=== PATIENT | male | born 2005 | race Caucasian/White ===

== ENCOUNTER 2025-07-10 21:15 | Inpatient (IN) | payer OTHER, BC ==
[~2025-07-10] VITALS: Ht 185.4 cm; Wt 100.0 kg
--- NOTE | 2025-07-10 21:51 | Physician Documentation ---
History of Present Illness Chief Complaint: Abdominal Pain w/vomiting Stated Complaint: ABD PAIN HPI Abdominal pain nausea vomiting x1 day. Patient reports that he has significant right lower quadrant pain 10/10 that has been persistent throughout the day. Patient reports nausea and vomiting. Patient reports normal bowel movements daily patient denies any issues with his urination at this time. Patient denies any other symptoms at this time. Patient denies any other significant past medical history. Medication Reconciliation Allergies: Coded Allergies: bee venom protein (honey bee) (Verified Allergy, Unknown, 07/10/25) Review of Systems ROS As stated above in the HPI, otherwise all systems are reviewed and negative. Physical Exam Vital Signs: Temperature: 97.6, Source: Temporal, Heart Rate: 70, Respiratory Rate: 15, BP: 136/77, Pulse Oximetry: 99, Weight: 100.000 Physical Exam VITALS: Reviewed and as above. GENERAL: Alert, no apparent distress. GI: Soft, please tender with palpation, bowels sounds present, no rebound, guarding and rebound tenderness present during examination. BACK: No CVA tenderness, or swelling MUSCULOSKELETAL No deformities, no edema SKIN: Warm and dry, no rash NEURO: Oriented x4, No motor or sensory deficit PSYCH: Normal mood and affect, no agitation Progress Results/Orders Results/Orders Vital Signs 07/10/25 21:48 Temp 97.6 Pulse 70 Resp 15 B/P (MAP) 136/77 Pulse Ox 99 Medical Decision Making Findings This is a G1-year-old gentleman with RLQ pain, most concerning for appendicitis. Abdominal exam concerning for peritoneal signs acute abdomen at this time. High suspicion for appendicitis. Patient with appendicitis this confirmed on CT scan, the hospitalist was consulted and patient admitted. Given work up, low suspicion for acute hepatobiliary disease (including acute cholecystitis or cholangitis), acute infectious processes (pneumonia, hepatitis, pyelonephritis), vascular catastrophe, bowel obstruction, or viscus perforation. Presentation not consistent with other acute, emergent causes of abdominal pain at this time. IV established fluids started pain management provided Zofran given. Handoff for this patient has been provided to my attending Dr. Jean. Differential Dx:Considerations: Include: AAA, Angina/MD, Aortic dissection, Appendicitis, Bowel obstruction, Cholangitis, Cholelithasis, Constipation, Diverticular disease, Esophageal rupture, Esophagitis, Gastritis/PUD, Gastroenteritis, GI hemorrhage, Hernia, Hepatitis, Inflammatory BD, Ischemic bowel, Pancreatitis, Porphyria, Testicular torsion, Trauma, intraabdominal, Urinary obstruction, Urinary tract infection, Urolithiasis, Other Departure Disposition: 07 LEFT AWOL/ELOPED Impression: Primary Impression: Vomiting Additional Impressions: Abdominal pain Acute appendicitis Discharge Instructions: Appendicitis, Adult, [id number] Additional Instructions: This is a 19-year-old gentleman with RLQ pain, most concerning for appendicitis. Abdominal exam concerning for peritoneal signs acute abdomen at this time. High suspicion for appendicitis. Patient with appendicitis this confirmed on CT scan, the hospitalist was consulted and patient admitted. Given work up, low suspicion for acute hepatobiliary disease (including acute cholecystitis or cholangitis), acute infectious processes (pneumonia, hepatitis, pyelonephritis), vascular catastrophe, bowel obstruction, or viscus perforation. Presentation not consistent with other acute, emergent causes of abdominal pain at this time. IV established fluids started pain management provided Zofran given. Handoff for this patient has been provided to my attending Dr. Jean. Referrals: NO PRIMARY CARE PROVIDER (PCP) Education Educated: Patient Educated regarding: diagnosis, treatment, need for follow up Signature Scribe Signature: A Attestation: Scribed for Jolanta Francis by TIARA Garnica . 07/11/25 01:19 JOLANTA FRANCIS Jul 10, 2025 21:51
[2025-07-10 22:31] LABS: MEAN PLATELET VOLUME 8.1 FL (7.4-10.4); RED CELL DISTRIBUTION WIDTH 13.4 % (11.5-14.5)
[2025-07-10 22:35] LABS: LEUKOCYTE ESTERASE ,URINE NEGATIVE (Neg); NITRITES, URINE NEGATIVE (Neg); OCCULT BLOOD,URINE NEGATIVE (Neg)
[2025-07-10 22:42] LABS: AMORPHOUS PHOSPHATES 4+; SQUAMOUS EPITHELIAL CELL,UR NONE SEEN /LPF (FEW); UA COLLECTION TYPE CLN CATCH MIDSTREAM
[2025-07-10 22:56] LABS: CREATININE 0.88 MG/DL (0.60-1.10); TOTAL CARBON DIOXIDE 33.1 MMOL/L (24-32); eCRCL 137 ML/MIN; eGFR > 90 ML/MIN
[2025-07-11] VITALS (23 sets, daily range): BP systolic 113–144; BP diastolic 55–86; PULSE 60–83; RESP 12–16; TEMP 97.6–98.4; O2SAT 91–99
[2025-07-11] MEDS: ondansetron/PF 4mg/2ml inj IV ONE (00:04)
[2025-07-11] MEDS: morphine 4 MG/ML inj SYRINge IV ONE (00:05)
[2025-07-11] MEDS: normal saline 1000ml 1,000 ML IV ONE (00:05)
[2025-07-11] MEDS ORDERED: iohexol 300mg/ml 100ml inj. ONE (00:15)
--- NOTE | 2025-07-11 00:43 | RADIOLOGY REPORT ---
Exam: CT CT ABDOMEN PELVIS W/ IV CONTRAST History: LRQ pain, nausea and vomiting COMPARISON: None Technique: Multidetector spiral CT of the abdomen and pelvis was performed from lung bases to pubic symphysis. Intravenous contrast was administered during this examination. Portal venous imaging was obtained. Axial, coronal and sagittal multiplanar reformats were performed by the technologist on a separate workstation. Radiation Dose : 1. Abdomen/Pelvis: CTDIvol 23.59 mGy, DLP 1179.09 mGy*cm. CONTRAST: Type of contrast: Omnipaque 100 Contrast injected: 100 ml Findings: Lung Bases: No acute or significant lung base finding. Normal heart size. No pleural or pericardial effusion. Liver: The liver is normal in size. No focal lesions. Normal hepatic vascular enhancement. Gallbladder and biliary Tree: Unremarkable Spleen: Unremarkable Pancreas: The pancreas is normal in appearance without focal lesions or abnormal enhancement. Adrenal Glands: Unremarkable Kidneys: No hydronephrosis. Bladder: Unremarkable Bowel: Appendix is mildly dilated measuring 0.8 cm with mild surrounding edema. Mucosa is hyperenhancing Ascites: Absent Lymphadenopathy: No mesenteric, retroperitoneal or periportal lymphadenopathy. Abdominal wall and Mesentery: Unremarkable. Vasculature: The visualized abdominal aorta is normal in size and caliber. Abdominal and pelvic vessels demonstrate normal enhancement. Pelvic Organs: Unremarkable Musculoskeletal: No aggressive focal bony lesions, acute fractures or dislocation. IMPRESSION: Suspected early acute appendicitis. Radiation optimization: All CT scans at this facility use at least one of these dose optimization techniques: automated exposure control mA and/or kV adjustment per patient size (includes targeted exams where dose is matched to clinical indication) or iterative reconstruction.
[2025-07-11] MEDS ORDERED: magnesium sulf-water 2g/50mL 50 ML IV PRN (01:15)
[2025-07-11] MEDS ORDERED: magnesium sulf-water 4G/100mL 100 ML IV PRN (01:15)
[2025-07-11] MEDS ORDERED: magnesium Cl slow-release 64mg tablet PO PRN (01:15)
[2025-07-11] MEDS ORDERED: ondansetron/PF 4mg/2ml inj IV PRN ×3 (01:15→11:00)
[2025-07-11] MEDS ORDERED: potassium Cl 20 mEq SR tablet PO PRN ×2 (01:15)
[2025-07-11] MEDS ORDERED: magnesium hydroxide 30ml (MOM) UD suspension PO PRN (01:15)
[2025-07-11] MEDS ORDERED: potassium Cl 40MEQ/1/2NS 520ml 520 ML IV PRN (01:15)
[2025-07-11] MEDS ORDERED: mag hydrox/Alum hydrox/simeth 30ml oral suspension PO PRN (01:15)
[2025-07-11] MEDS: CefTRIAXone/D5W-Rocephin 1gm 50 ML IV ONE (01:43)
[2025-07-11] MEDS: normal saline 1000ml 1,000 ML IV SCH (01:44)
[2025-07-11] MEDS ORDERED: NO HOME MEDS (02:09)
[2025-07-11] MEDS: metroNIDAZOLE-Flagyl 500mg/NS 100 ML IV STA (02:17)
[2025-07-11] MEDS: ketorolac trometh 15mg/ml vial 15 MG/ML ML IV STA (02:26)
[2025-07-11 02:39] LABS: APTT 29 SECONDS (22-32); INR 1.0 INR
--- NOTE | 2025-07-11 04:43 | HISTORY AND PHYSICAL-Residence ---
History & Physical Providers to CC Resident Creating Document: NICOLE WELDON RES ~ History of Present Illness Reason for Admit\Complaint: Possible appendicitis History of Present Illness 19-year-old male presented to the ED due to abdominal pain which started in the evening, pain started on right lower quadrant and radiated to the umbilical area and back, severity 7/10 non positional, not related to the foot. Patient also reported associated nausea vomiting 3 times before visited ED. he reported normal bowel movement and no any urinary symptoms, no fever and no chills. Allergies: Coded Allergies: bee venom protein (honey bee) (Verified Allergy, Unknown, 07/10/25) Home Medications Home Medications Active Reported No Home Medications (Home Med List) Each Past Medical History Past Medical History Noncontributory Past Surgical History Surgical History Comment Tonsillectomy Family History Family History: Patient reports no known family medical history. Past Social History Smoking: Non-Smoker Alcohol Use: Rarely Drug Use: None ROS ROS Constitutional: No fever, dizziness, weakness. no change in appetite/weight HEENT: No blurring of the vision, No sore throat, epistaxis, tinnitus Cardiovascular: no chest pain/discomfort, palpitations, no syncope. No pedal edema Respiratory: No sob, cough,, hemoptysis Gastrointestinal as HPI Genitourinary: No frquency, urgency, incontinence, nocturia. No dysuria, hematuria Musculoskeletal: No arthralgia, myalgia Endocrine: No polydipsia, polyuria. No heat or cold intolerance Neurologic: No headache, vertigo. No weakness, no numbness or tingling of extremities Psychiatric: No hallucinations/delusions, no anhedonia, no suicidal ideation\ Hematologic: No bleeding or bruises Exam Vitals: Vital Signs Date Time Temp Pulse Resp B/P (MAP) Pulse Ox O2 Delivery O2 Flow Rate FiO2 07/11/25 02:40 18 07/11/25 02:00 65 100 07/10/25 21:48 97.6 General: General: Awake and Alert, no acute distress. HEENT: Conjunctiva pink, Sclera clear, Mucus Membranes moist. Neck: Supple without masses and tenderness. Resp: Lungs clear to auscultation bilaterally. Heart: Regular Rate and rhythm, normal S1 and S2 without murmur, rub or gallop. Abdomen: Soft, tenderness on right lower quadrant, and umbilical area, no guarding Extremities: No cyanosis,clubbing or edema. Skin: Warm and Dry. Neurological: Speech is clear, alert, and oriented x 4, no gross neurological deficits Diagnostic Data Last Recorded Lab Results: 07/10/25220507/10/252205 Diagnostic Data: Laboratory Tests Test 07/11/25 00:00 Prothrombin Time 10.3 SECONDS (9.0-12.0) INR International Normalized Ratio 1.0 INR Activated Partial Thromboplast Time 29 SECONDS (22-32) Coagulation Comments Advance Care Planning Advanced Care plannin - 30 Minutes Additional Plan 19 years old male presented with acute abdominal pain started this evening Abdominal pain Possible appendicitis Leukocytosis, CT showed: Suspected early acute appendicitis. Dr Pratt was informed. IV fluid, ceftriaxone metronidazole started Pain management and Zofran ordered Code Status: Full DVT prophylaxis: SCD Analgesia/sedation: Morphine, ketorolac Line/tube: Peripheral GI prophylaxis: None Nutrition: NPO Prognosis: Guarded Disposition: Continue monitoring patient in ortho floor Nicole Weldon MD Internal Medicine Resident Date of Service: Jul 11, 2025 Billing Provider: THIEN EPPS MD Addendum agree with the resident acute appendicitis surgical consult ceftriaxone and metronidazole IV NPO IM 3 NICOLE WELDON, RES Jul 11, 2025 04:43 THIEN EPPS MD Jul 11, 2025 15:32
[2025-07-11] MEDS ORDERED: hydrALAZINE 20mg/ml inj. IV PRN (07:55)
[2025-07-11] MEDS ORDERED: fentaNYL/PF 50MCG/1 ML 2ML syringe IV PRN ×2 (07:55)
[2025-07-11] MEDS: ringers solution, lacted 1,000 ML IV SCH (07:55)
[2025-07-11] MEDS ORDERED: labetalol 20mg/4ml (5mg/ml) syringe IV PRN (07:55)
[2025-07-11] MEDS: K and/or MAG REPLACEMENT MC SCH (08:00)
[2025-07-11] MEDS ORDERED: fentaNYL/PF 50MCG/1 ML 2ML syringe ONE (08:48)
[2025-07-11] MEDS ORDERED: BUPIVAcaine/PF 2.5mg/ml (0.25%) 10ml vial ONE (08:48)
[2025-07-11] MEDS ORDERED: midazolam 1 mg/ML 2ml injection ONE (08:48)
[2025-07-11] MEDS ORDERED: propofol inj 20 ML IV ONE (08:49)
[2025-07-11] MEDS ORDERED: rocuronium 10mg/ml inj IV ONE (08:49)
[2025-07-11] MEDS ORDERED: dexamethasone sod phosphate 4mg/ml inj. ONE (08:49)
[2025-07-11] MEDS ORDERED: glycopyrrolate 0.2mg/ml inj ONE (08:49)
[2025-07-11] MEDS ORDERED: ondansetron/PF 4mg/2ml inj ONE (08:49)
[2025-07-11] MEDS ORDERED: LIDOcaine 1%/PF 5ML 10 MG/ML VIAL ONE (08:49)
--- NOTE | 2025-07-11 09:44 | PROGRESS NOTE ---
Progress Note ID Providers to CC ~ Progress Note Progress Note: pt seen and examiined-findings consistent with early appendicitis-pt needs tanviro appbhavna-possible open-discussed procedure including risks/benefits/alernatives DAWIT BOYKIN MD Jul 11, 2025 09:44
[2025-07-11] MEDS ORDERED: acetaminophen 1,000mg/100ml IV 100 ML IV ONE (09:57)
--- NOTE | 2025-07-11 10:55 | OPERATIVE REPORT ---
Operative Report Providers to CC ~ Date of Procedure: Jul 11, 2025 Pre-Operative Diagnosis: APPENDICITIS Post-Operative Diagnosis SAME as PRE-Op Procedure Performed radha do Surgeon: harpal ignacio Anesthesiologist: Catalino Tierney Type of Anesthesia: General Findings: appendicitis/adhesions Estimated Blood Loss: min Specimen Removed: DAWIT Neff MD Jul 11, 2025 10:55
[2025-07-11] MEDS ORDERED: HYDROmorphone inj. 0.5 MG/0.5 ML DISP.SYRIN IV PRN (11:00)
[2025-07-11] MEDS: ketorolac trometh 30MG/ML vial 30 MG/ML VIAL IV PRN (11:22)
[2025-07-11] MEDS: morphine 4 MG/ML inj SYRINge IV PRN (11:27)
[2025-07-11] MEDS: HYDROcodone/acetaminophen 10/325mg tab PO PRN (13:26)
[2025-07-11] MEDS: metroNIDAZOLE-Flagyl 500mg/NS 100 ML IV SCH (13:27)
[2025-07-11] MEDS: docusate sod 100mg capsule PO SCH (13:27)
[2025-07-11] MEDS ORDERED: morphine 4 MG/ML inj SYRINge IV PRN ×2 (19:05→19:06)
--- NOTE | 2025-07-11 19:20 | PROGRESS NOTE- Residence ---
Progress Note - Resident Providers to CC Resident Creating Document: FLORENCIO GUADALUPE RES ~ Antibiotic Timeout Antibiotic Ordered?: Yes Subjective Patient was examined, he is doing well and his vitals are Continue monitoring the patient Objective Vital Signs Date Time Temp Pulse Resp B/P (MAP) Pulse Ox O2 Delivery O2 Flow Rate FiO2 07/11/25 19:06 16 07/11/25 18:00 98.4 75 119/66 (83) 99 Room Air 07/11/25 11:06 6.0 Result Diagram: 07/10/25220507/10/252205 HEENT: Conjunctiva pink, Sclera clear, Mucus Membranes moist. Neck: Supple without masses and tenderness. Resp: Lungs clear to auscultation bilaterally. Heart: Regular Rate and rhythm, normal S1 and S2 without murmur, rub or gallop. Abdomen: Soft, reports 3/10 intensity abdominal pain, , no guarding Extremities: No cyanosis,clubbing or edema. Skin: Warm and Dry. Neurological: Speech is clear, alert, and oriented x 4, no gross neurological deficits Coagulation Studies Laboratory Tests Test 07/11/25 00:00 Prothrombin Time 10.3 SECONDS (9.0-12.0) INR International Normalized Ratio 1.0 INR Activated Partial Thromboplast Time 29 SECONDS (22-32) Coagulation Comments Advance Care Planning Advanced Care plannin - 30 Minutes Assessment Assessment 19 years old male presented with acute abdominal pain started this evening Abdominal pain s/p appendectomy Patient vitals are stable Plan- Continue IV fluid, ceftriaxone metronidazole day 2 Continue Pain management and Zofran Follow-up with CBC/CMP Code Status: Full DVT prophylaxis: SCD Analgesia/sedation: Morphine, ketorolac Line/tube: Peripheral GI prophylaxis: None Prognosis: Guarded Disposition: Continue monitoring patient in ortho floor, Dr. Zaragoza involved in the care florencio guadalupe PGY1 Date of Service: Jul 11, 2025 Billing Provider: IMAN BRITT MD Common Visit Codes: [id number] INP/OBS CARE(MOD) FLORENCIO GUADALUPE RES Jul 11, 2025 19:20 IMAN BRITT MD Jul 12, 2025 16:36
--- NOTE | 2025-07-12 00:50 | OPERATIVE REPORT ---
DATE OF SURGERY: 07/11/2025 DICTATING PHYSICIAN: Adam Pratt MD DATE OF OPERATION: 07/11/2025 PREOPERATIVE DIAGNOSIS: Appendicitis. POSTOPERATIVE DIAGNOSIS: Appendicitis. PROCEDURE PERFORMED: Robotic appendectomy. SURGEON: Adam Pratt MD. ONCOLOGY RESEARCH RN: Harish. ANESTHESIA: General/Dr. Tierney. DRAINS: None. INDICATIONS FOR OPERATION: A 19-year-old male presented with abdominal discomfort and found to have evidence of appendicitis, taken to surgery for robotic appendectomy. INTRAOPERATIVE FINDINGS: Acute appendicitis with adhesions. DESCRIPTION OF PROCEDURE: The patient was placed supine on the operating table. After induction of general anesthesia and placement of endotracheal tube, the abdomen was prepped and draped. A supraumbilical incision was then made and Manuel port placed using an open technique. Pneumoperitoneum was begun by insufflation of CO2. Additional ports were then placed, two in the left lower quadrant and one in the right under laparoscopic vision. Robot was then brought into the field. Camera port docked. Camera placed, camera targeted. Additional ports were then docked and instruments placed. The abdomen was then explored. The patient had extensive adhesions in the right lower quadrant. The appendix was subsequently visualized. Adhesions taken down, the appendiceal-cecal junction identified, isolated, ligated, and divided at the appendiceal mesentery. Once hemostasis was found to be adequate, the robot was undocked and removed from the field. The appendix was placed in an Endobag using a laparoscope. The abdomen was copiously irrigated with large amount of antibiotic-containing solution. Once hemostasis was found to be adequate, the ports were removed under laparoscopic vision without evidence of active bleeding. Final port and camera were withdrawn. Pneumoperitoneum was then evacuated. Wounds were closed in layers. The skin was closed with clips. Dressing was applied, and the patient was transferred to recovery in stable condition after reversing from general anesthesia. Adam Pratt MD TID: [id number] RECEIPT: [id number] /
[2025-07-12] MEDS: CefTRIAXone/D5W-Rocephin 1gm 50 ML IV SCH (01:47)
[2025-07-12 05:05] VITALS: BP 117/67; PULSE 71; RESP 16; TEMP 98.7; O2SAT 98
[2025-07-12 06:41] VITALS: BP 117/67; PULSE 71; RESP 16; TEMP 98.7; O2SAT 98
[2025-07-12 08:00] VITALS: RESP 16; O2SAT 98
--- NOTE | 2025-07-12 09:10 | CONSULTATION ---
DATE OF CONSULTATION: 07/11/2025 DICTATING PHYSICIAN: Adam Pratt MD REASON FOR CONSULTATION: Abdominal pain. HISTORY OF PRESENT ILLNESS: The patient is a 19-year-old male who presents to ER with complaint of abdominal discomfort. CAT scan revealed early appendicitis. On further questioning, the patient has had pain for the past 24 hours in the right lower quadrant and periumbilical region. No fever or chills. No dysuria. PAST MEDICAL HISTORY: Unremarkable. PAST SURGICAL HISTORY: Unremarkable and tonsillectomy. HOME MEDICATIONS: None. ALLERGIES: No medical allergies. SOCIAL HISTORY: Denies tobacco or alcohol use. REVIEW OF SYSTEMS: See H and P. PHYSICAL EXAMINATION: GENERAL: Well-nourished male, in no distress. VITAL SIGNS: Unremarkable. HEART: Regular rate and rhythm. LUNGS: Clear to auscultation. ABDOMEN: Right lower quadrant tenderness. EXTREMITIES: Unremarkable. NEUROLOGIC: Nonfocal. LABORATORY DATA: Included WBC of 19, hematocrit of 45, platelet count is 285. Chemistries include a creatinine of 11.8. IMAGING STUDIES: CAT scan revealed evidence of early appendicitis. IMPRESSION: Early appendicitis. RECOMMENDATIONS: 1. Admit. 2. Hydrate. 3. IV antibiotics. 3. Kurt do, possibly open. Adam Pratt MD TID: [id number] RECEIPT: [id number] KB/RCR
[2025-07-12 09:42] LABS: MEAN PLATELET VOLUME 8.1 FL (7.4-10.4); RED CELL DISTRIBUTION WIDTH 13.0 % (11.5-14.5)
[2025-07-12 09:51] LABS: CREATININE 0.94 MG/DL (0.60-1.10); TOTAL CARBON DIOXIDE 30.4 MMOL/L (24-32); eCRCL 140 ML/MIN; eGFR > 90 ML/MIN
[2025-07-12 10:19] VITALS: BP 111/52; PULSE 69; RESP 18; TEMP 98.1; O2SAT 98
[2025-07-12] MEDS ORDERED: LACT1CAP26 PO (14:45)
[2025-07-12] MEDS ORDERED: CEFD300C3 PO (14:45)
[2025-07-12] MEDS ORDERED: METR-159 PO (14:45)
[2025-07-12] MEDS ORDERED: ACET-1008 PO (14:45)
[2025-07-12 14:54] VITALS: RESP 16
--- NOTE | 2025-07-12 15:05 | PROGRESS NOTE ---
Progress Note ID Providers to CC ~ Progress Note Progress Note: doing well/ok to DAWIT Roque MD Jul 12, 2025 15:05
--- NOTE | 2025-07-12 20:22 | DISCHARGE SUMMARY-Residence ---
Discharge Summary Providers to CC Resident Creating Document: ANDREA GUADALUPE, RES ~ Discharge Summary Admission Diagnosis: APPENDICITIS Hospital Course DATE OF ADMISSION: 07/11/2025 DATE OF DISCHARGE: 07/12/2025 Discharge Diagnosis\Comment: Acute appendicitis Operations\Procedures: Appendectomy Consultants: Dr. Pratt Complications: None Condition on DC: Stable New Medications: Cefdinir* (Cefdinir*) 300 Mg Capsule 1 CAP PO Q12H for 3 Days, #6 CAP Lactobacillus Rhamnosus (Culturelle) 10 Billion Cell Capsule 1 CAP PO BID for 30 Days, #60 CAP 0 Refills Metronidazole* (Flagyl*) 500 Mg Tablet 1 TAB PO Q12H for 3 Days, #6 TAB Continued Medications: Acetaminophen (Tylenol) 325 Mg Tablet 1 TAB PO Q4HPRN PRN for pain or fever for 24 Days, #100 TAB Discharge Summary: History of Present Illness 19-year-old male presented to the ED due to abdominal pain which started in the evening, pain started on right lower quadrant and radiated to the umbilical area and back, severity 7/10 non positional, not related to the foot. Patient also reported associated nausea vomiting 3 times before visited ED. he reported normal bowel movement and no any urinary symptoms, no fever and no chills. Hospital course 19 years old male presented to ED due to abdominal pain which started on right lower quadrant and radiates to the umbilical area and back with 7/10 intensity, initial laboratory shows elevated WBC, normal vital signs, CT scan of the abdomen/pelvis showsSuspected early acute appendicitis. And Dr. Powers was consulted immediately and patient underwent appendectomy on 07/11/2025 and today his white count is trending down and vitals are stable and patient is recovered sooner than expected and cleared for discharge by Dr. powers HEENT: Conjunctiva pink, Sclera clear, Mucus Membranes moist. Neck: Supple without masses and tenderness. Resp: Lungs clear to auscultation bilaterally. Heart: Regular Rate and rhythm, normal S1 and S2 without murmur, rub or gallop. Abdomen: Soft, on palpation patient report mildly tender in the right lower quadrant, no guarding and rigidity, bowel sounds are normal on auscultation Extremities: No cyanosis,clubbing or edema. Skin: Warm and Dry. Neurological: Speech is clear, alert, and oriented x 4, no gross neurological deficits Coagulation Studies Vital Signs Date Time Temp Pulse Resp B/P (MAP) Pulse Ox O2 Delivery O2 Flow Rate FiO2 07/12/25 14:54 16 07/12/25 10:19 98.1 69 111/52 (71) 98 Room Air 07/11/25 11:06 6.0 Laboratory Tests Test 07/10/25 22:06 07/10/25 22:27 07/11/25 00:00 07/11/25 07:47 White Blood Count 19.3 X10'3 Red Blood Count 5.29 X10'6 Hemoglobin 15.5 g/dl Hematocrit 45.4 % Mean Corpuscular Volume 85.8 FL Mean Corpuscular Hemoglobin 29.3 PG Mean Corpuscular Hemoglobin Concent 34.2 g/dL Red Cell Distribution Width 13.4 % Platelet Count 285 X10'3 Mean Platelet Volume 8.1 FL Neutrophils (%) (Auto) 85.2 % Lymphocytes (%) (Auto) 9.0 % Monocytes (%) (Auto) 5.2 % Eosinophils (%) (Auto) 0.2 % Basophils (%) (Auto) 0.4 % Neutrophils # (Auto) 16.4 X10'3 Lymphocytes # (Auto) 1.7 X10'3 Monocytes # (Auto) 1.0 X10'3 Eosinophils # (Auto) 0.0 X10'3 Basophils # (Auto) 0.1 X10'3 CBC Comment Sodium Level 141 MMOL/L Potassium Level 4.1 MMOL/L Chloride Level 102 MMOL/L Carbon Dioxide Level 33.1 MMOL/L Anion Gap 6 Blood Urea Nitrogen 11 MG/DL Creatinine 0.88 MG/DL Estimated GFR/1.73 m2 > 90 ML/MIN BUN/Creatinine Ratio 12.5 Glucose Level 104 MG/DL Calcium Level 9.2 MG/DL Magnesium Level 2.1 MG/DL Total Bilirubin 0.2 MG/DL Aspartate Amino Transf (AST/SGOT) 14 U/L Alanine Aminotransferase (ALT/SGPT) 23 U/L Alkaline Phosphatase 113 IU/L Total Protein 7.5 G/DL Albumin 4.1 G/DL Globulin 3.4 G/DL Albumin/Globulin Ratio 1.2 Lipase 32 U/L Chemistry Comments Urine Specimen Description Cln catch midstream Urine Color Yellow Urine Clarity Cloudy Urine pH 8.5 Urine Specific [place] 1.020 Urine Protein Negative mg/dl Urine Glucose (UA) Negative mg/dl Urine Ketones Negative mg/dl Urine Occult Blood Negative Urine Nitrite Negative Urine Bilirubin Negative Urine Urobilinogen 0.2 E.U/dL Urine Leukocyte Esterase Negative Urine RBC None seen /HPF Urine WBC None seen /HPF Urine Squamous Epithelial Cells None seen /LPF Urine Amorphous Phosphates 4+ Urine Bacteria None seen /HPF Urine Culture Indicated Not ind Volume Urine Centrifuged 10 ml Urine Comment Prothrombin Time 10.3 SECONDS INR International Normalized Ratio 1.0 INR Activated Partial Thromboplast Time 29 SECONDS Coagulation Comments Glucometer 98 mg/dl Test 07/12/25 09:13 White Blood Count 13.7 X10'3 Red Blood Count 4.58 X10'6 Hemoglobin 13.2 g/dl Hematocrit 39.2 % Mean Corpuscular Volume 85.6 FL Mean Corpuscular Hemoglobin 28.9 PG Mean Corpuscular Hemoglobin Concent 33.8 g/dL Red Cell Distribution Width 13.0 % Platelet Count 262 X10'3 Mean Platelet Volume 8.1 FL Neutrophils (%) (Auto) 82.2 % Lymphocytes (%) (Auto) 13.6 % Monocytes (%) (Auto) 3.9 % Eosinophils (%) (Auto) 0.1 % Basophils (%) (Auto) 0.2 % Neutrophils # (Auto) 11.3 X10'3 Lymphocytes # (Auto) 1.9 X10'3 Monocytes # (Auto) 0.5 X10'3 Eosinophils # (Auto) 0.0 X10'3 Basophils # (Auto) 0.0 X10'3 CBC Comment Sodium Level 142 MMOL/L Potassium Level 3.6 MMOL/L Chloride Level 105 MMOL/L Carbon Dioxide Level 30.4 MMOL/L Anion Gap 7 Blood Urea Nitrogen 10 MG/DL Creatinine 0.94 MG/DL Estimated GFR/1.73 m2 > 90 ML/MIN BUN/Creatinine Ratio 10.6 Glucose Level 143 MG/DL Calcium Level 8.5 MG/DL Magnesium Level 2.0 MG/DL Total Bilirubin 0.4 MG/DL Aspartate Amino Transf (AST/SGOT) 13 U/L Alanine Aminotransferase (ALT/SGPT) 17 U/L Alkaline Phosphatase 86 IU/L Total Protein 6.5 G/DL Albumin 3.2 G/DL Globulin 3.3 G/DL Albumin/Globulin Ratio 1.0 Chemistry Comments Patient had hospital: CT scan shows early appendicitis Discharge instruction: Follow-up with Dr. Pratt in 1 week . No heavy lifting greater than 10 pounds until cleared by your surgeon. shower tomorrow, however avoid scrubbing the incision sites. You may begin with a full liquid diet and advance to soft foods as tolerated until full bowel function returns. Follow up with PCP in 1 week with CBC, CMP. New Medications: Cefdinir* 300 Mg Capsule p.o. b.i.d. for 3 days Lactobacillus Rhamnosus (Culturelle) 10 Billion Cell Capsule for 30 days Metronidazole* (Flagyl*) 500 Mg Tablet p.o. b.i.d. for 3 days *Problems/Diagnosis: (1) Abdominal pain Status: Acute (2) Acute appendicitis Status: Acute (3) Vomiting Status: Acute Total Time Spent on D/C: Up to 30 Minutes Date of Service: Jul 12, 2025 Billing Provider: IMAN BRITT MD Common Visit Codes: [id number] DISCH DAY <30MIN ANDREA GUADALUPE, RES Jul 12, 2025 20:20 IMAN BRITT MD Jul 13, 2025 08:40
== END 2025-07-12 15:13 | disposition home or self-care (01) | DRG 337 ==
LOC: ER 21:16 → ED HOLD 07-11 01:15 → EDBEDREQ 07-11 06:04 → ORTHO 4S 07-11 06:47 → SUR 3N 07-12 05:15
PROVIDERS: ADMIT Internal Medicine Critical Care Medicine; ATTEND Internal Medicine
PROC: BW211ZZ Computerized Tomography (CT Scan) of Abdomen and Pelvis using Low Osmolar Contrast (ICD-10-PCS; 2025-07-10)
PROC: 0DNW4ZZ Release Peritoneum, Percutaneous Endoscopic Approach (ICD-10-PCS; 2025-07-11)
PROC: 8E0W4CZ Robotic Assisted Procedure of Trunk Region, Percutaneous Endoscopic Approach (ICD-10-PCS; 2025-07-11)
PROC: 0DTJ4ZZ Resection of Appendix, Percutaneous Endoscopic Approach (ICD-10-PCS; principal; 2025-07-11 09:38)
DX: K35.80 Unspecified acute appendicitis (principal); K66.0 Peritoneal adhesions (postprocedural) (postinfection)
CPT/HCPCS: 99285; Z7506; Z7508; 36415; 74177; 80053; 81001; 82948; 83690; 83735; 85025; 85610; 85730; 87081; A4215; A4618; A6402; G0378; J0131; J0696; J1100; J1885; J2250; J2270; J2405; J2704; J2710; J3010; J3490; J7030; J7120; Q9967